=== PATIENT | female | born 1970 | race Caucasian/White ===

== ENCOUNTER → 2023-05-17 07:03 | Outpatient (REF) | payer OTHER, SELFPAY | LOC: WDC 07:03 | PROVIDERS: ATTENDING PHYSICIAN Obstetrics & Gynecology Gynecology; FAMILY PHYSICIAN Family Medicine | DX: Z12.31 Encounter for screening mammogram for malignant neoplasm of breast (principal) | CPT/HCPCS: 77063; 77067 ==

== ENCOUNTER → 2024-05-21 06:59 | Outpatient (REF) | payer OTHER, SELFPAY | LOC: WDC 06:59 | PROVIDERS: ATTENDING PHYSICIAN Obstetrics & Gynecology Gynecology; FAMILY PHYSICIAN Physician Assistant Medical | DX: Z12.31 Encounter for screening mammogram for malignant neoplasm of breast (principal) | CPT/HCPCS: 77063; 77067 ==